=== PATIENT | female | born 1970 | race Caucasian/White ===

== ENCOUNTER 2024-02-22 22:08 | Emergency (ER) | payer BC, OTHER ==
[~2024-02-22] VITALS: Ht 160 cm; Wt 79.4 kg
[~2024-02-22 22:08] MED LIST: ATA25 PO; BUS5 PO; GLU500 PO; MECL-370 PO; TRAZ-343 PO
[2024-02-22 22:25] VITALS: BP 151/96; PULSE 109; RESP 20; TEMP 98.2; O2SAT 99
[2024-02-22] MEDS: NACL 0.9% 1,000 ML IV ONE (23:24)
[2024-02-22] MEDS: ONDANSETRON 4 MG/2 ML VIAL IVP ONE (23:26)
[2024-02-22] MEDS: KETOROLAC 30 MG/ML VIAL IVP ONE (23:30)
[2024-02-22 23:39] LABS: BASOPHILS # (AUTO) 0.1 K/uL (0.00-0.22); BASOPHILS % (AUTO) 0.4 % (0.0-2.0); EOSINOPHILS % (AUTO) 0.3 % (0.0-4.0); HEMATOCRIT 42.9 % (36-48); HEMOGLOBIN 14.2 g/dL (12.0-16.0); LYMPHOCYTES # (AUTO) 2.4 K/uL (2.5-16.5); LYMPHOCYTES % (AUTO) 16.2 % (20.5-51.1); MEAN CORPUSCULAR HEMOGLOBIN 30 pg (27-31); MEAN CORPUSCULAR HGB CONC 33 g/dL (33-37); MEAN CORPUSCULAR VOLUME 90.5 fL (80-94); MONOCYTES # (AUTO) 0.8 K/uL (0.8-1.0); MONOCYTES % (AUTO) 5.6 % (1.7-9.3); NEUTROPHILS # (AUTO) 11.3 K/uL (1.8-7.7); NEUTROPHILS % (AUTO) 77.5 % (42.2-75.2); PLATELET COUNT (AUTO) 256 K/uL (140-450); RED BLOOD CELL COUNT(AUTO) 4.74 MIL/uL (4.20-5.40); RED CELL DISTRIBUTION WIDTH 13.1 % (11.6-13.7); WHITE BLOOD COUNT (AUTO) 14.6 K/uL (4.8-10.8)
[2024-02-22 23:48] LABS: APPEARANCE,URINE CLEAR (CLEAR); BILIRUBIN,URINE NEGATIVE (NEGATIVE); BLOOD, URINE 3+ (NEGATIVE); COLOR,URINE YELLOW (YELLOW); LEUKOCYTE ESTERASE ,URINE 2+ (NEGATIVE); NITRITE, URINE NEGATIVE (NEGATIVE); PROTEIN,URINE 2+ (NEGATIVE); UGLUCOSE NEGATIVE (NEGATIVE); UROBILINOGEN,URINE 0.2 EU/dL (0.2 - 1)
[2024-02-22 23:52] LABS: ANION GAP 13.4 (8-16); CALCIUM 9.5 mg/dL (8.5-10.1); CARBON DIOXIDE 28.2 mmol/L (21-32); CREATININE 0.8 mg/dL (0.6-1.3); POTASSIUM 3.6 mmol/L (3.5-5.1)
[2024-02-23 00:16] LABS: ALBUMIN 3.4 g/dL (3.4-5.0); BILIRUBIN,DIRECT 0.1 mg/dL (0.0-0.3); TOTAL BILIRUBIN 0.5 mg/dL (0.0-1.0)
[2024-02-23 00:23] LABS: BACTERIA,URINE 10-30 (MOD) /HPF (None Seen); MUCUS,URINE 1+ /LPF (None Seen); SQUAMOUS EPITHELIAL CELL,UR 0-3 (FEW) /LPF (0-3 (FEW)); WBC,URINE TOO MANY TO COUNT /HPF (0-5)
[2024-02-23] MEDS: MORPHINE SULFATE 4 MG/ML SYR IVP ONE (00:30)
[2024-02-23 00:46] LABS: LACTIC ACID 1.3 mmol/L (0.4-2.0)
[2024-02-23] MEDS ORDERED: CEPH-588 PO (03:22)
[2024-02-23] MEDS ORDERED: PYR100 PO (03:22)
[2024-02-23] MEDS ORDERED: ACET-8905 PO (03:22)
[2024-02-23] MEDS ORDERED: NAPR-337 PO (03:22)
[2024-02-23] MEDS ORDERED: cefTRIAXone 1,000 MG VIAL ONE (03:26)
[2024-02-23 03:40] VITALS: BP 153/87; PULSE 88; RESP 16
[2024-02-23] MEDS: MORPHINE SULFATE 10 MG/ML VIAL IVP ONE (03:40)
[2024-02-23 03:49] VITALS: O2SAT 99
[2024-02-23] MEDS ORDERED: HYDR-5071 PO (08:53)
== END 2024-02-23 04:23 | disposition home or self-care (01) ==
LOC: MED 22:08
DX: N39.0 Urinary tract infection, site not specified (principal); M54.50 Low back pain, unspecified; R00.0 Tachycardia, unspecified; R11.10 Vomiting, unspecified; E11.9 Type 2 diabetes mellitus without complications; I10 Essential (primary) hypertension; E03.9 Hypothyroidism, unspecified; E78.5 Hyperlipidemia, unspecified; Z79.899 Other long term (current) drug therapy; Z88.8 Allergy status to other drugs, medicaments and biological substances
CPT/HCPCS: 36415; 74176; 80048; 80076; 81001; 83605; 83690; 85025; 87086; 87186; 96361; 96365; 96375; 96376; 99285; J0696; J1885; J2270; J2405